=== PATIENT | male | born 1975 | race Caucasian/White ===

== ENCOUNTER 2019-01-22 21:56 | Day surgery (SDC) | payer OTHER, MEDICAID ==
[~2019-01-22] VITALS: Ht 188 cm; Wt 95.2 kg
[2019-01-22] MEDS ORDERED: AMLO10 PO (22:04)
--- NOTE | 2019-01-22 23:02 | NUR ---
INTO LOCATED WITHIN [facility] VIA [employer]. History, Chart, Medications and Allergies reviewed before start of procedure.Lungs clear T/O to Auscultation. Patient confirms NPO status and agrees with scheduled surgery. Patient States Post-Procedure ride home WILL BE AVAILABLE.
--- NOTE | 2019-01-22 23:39 | NUR ---
01/22/19 [id number] Geri Avila History, Chart, Medications and Allergies reviewed before start of procedure.PATIENT DETERMINED TO BE ASA APPROPRIATE FOR PROPOFOL SEDATION PRIOR TO START OF PROCEDURE BY .MONITOR INTACT WITH CONTINUOUS PULSE OXIMETRY AND INTERMITTENT BP.3-LEAD EKG REVIEWED WITH PHYSICIAN PRIOR TO START OF PROCEDURE.O2 VIA N/C INTACT THROUGHOUT SEDATION/PROCEDURE.
--- NOTE | 2019-01-23 00:16 | NUR ---
Discharge instructions reviewed with patient. Patient verbalizes understanding. Copy given to patient to take home. Discharged via wheelchair to private car for ride home WITH FRIEND
== END 2019-01-23 00:16 | disposition home or self-care (01) ==
LOC: ER 21:56 → ORSCMMR 22:57 → ER 01-23 00:16
PROC: 0DJ08ZZ Inspection of Upper Intestinal Tract, Via Natural or Artificial Opening Endoscopic (ICD-10-PCS; principal; 2019-01-23)
DX: T18.128A Food in esophagus causing other injury, initial encounter (principal); I10 Essential (primary) hypertension; Z79.899 Other long term (current) drug therapy
CPT/HCPCS: 96374; 99284-25; J1610; J2704; J7120